=== PATIENT | male | born 1995 | race Caucasian/White ===

== ENCOUNTER 2023-05-28 12:07 | Emergency (ER) | payer OTHER ==
[2023-05-28 12:16] VITALS: BP 120/79; PULSE 84; RESP 18; TEMP 98.6; BMI 29.2
[2023-05-28 13:18] LABS: BASO % 0.4 % (0-2.0); EOS % 2.5 % (0-4.5); HEMATOCRIT 44.5 % (35.4-49); HEMOGLOBIN 15.2 GM/dL (11.7-16.9); LYMPH % 23.7 % (8-40); MCH 30.1 pg (25.7-33.7); MCHC 34.2 g/dl (32.0-35.9); MEAN CELL VOLUME 87.8 fl (80-96); MEAN PLT VOLUME 7.8 fl (7.5-11.1); MONO % 8.7 % (3.8-10.2); NEUT % 64.7 % (42.8-82.8); PLATELET COUNT 269 10^3/uL (134-434); RBC 5.06 M/mm3 (4.00-5.60); RDW 13.2 % (11.9-15.9); WHITE BLOOD COUNT 8.2 K/mm3 (4.0-10.0)
[2023-05-28] MEDS ORDERED: DEXAMETHASONE SOD PHOSPHATE 10 MG/1 ML VIAL ONE (13:26)
[2023-05-28 13:42] LABS: CALCIUM 9.8 mg/dL (8.5-10.1)
[2023-05-28 13:43] LABS: BLOOD UREA NITROGEN 11.8 mg/dL (7-18)
[2023-05-28] MEDS: DEXAMETHASONE SOD PHOSPHATE 10 MG/1 ML VIAL IVPUSH ONE (13:43)
[2023-05-28 13:46] LABS: CREATININE 0.9 mg/dL (0.55-1.3)
[2023-05-28] MEDS ORDERED: KETOROLAC TROMETHAMINE 30 MG/1 ML VIAL ONE (15:25)
[2023-05-28] MEDS: KETOROLAC TROMETHAMINE 30 MG/1 ML VIAL IVPUSH ONE (15:30)
== END 2023-05-28 16:00 | disposition home or self-care (01) ==
LOC: JERFT 12:07
PROC: 3E033GC Introduction of Other Therapeutic Substance into Peripheral Vein, Percutaneous Approach (ICD-10-PCS; principal; 2023-05-28)
PROC: 3E0333Z Introduction of Anti-inflammatory into Peripheral Vein, Percutaneous Approach (ICD-10-PCS; 2023-05-28)
DX: J02.9 Acute pharyngitis, unspecified (principal); R22.1 Localized swelling, mass and lump, neck; R50.9 Fever, unspecified; R05.9 Cough, unspecified; R09.81 Nasal congestion; M54.2 Cervicalgia; K11.20 Sialoadenitis, unspecified
CPT/HCPCS: 36415; 70491-TC; 80048; 85025; 87651; 99285-25; J1100; Q9967